=== PATIENT | male | born 1960 | race African-American/Black ===

== ENCOUNTER 2018-05-20 14:38 | Emergency (ER) | payer BC ==
[~2018-05-20] VITALS: Ht 177.8 cm; Wt 108.9 kg
--- OUTSIDE RECORDS SUMMARY | 2018-05-20 14:41 | XMS REPORT | Continuity of Care Document ---
Author Author [facility] Interface Address Unknown Phone Unavailable Problems Problem Status Onset Date Classification Date Reported Comments Source Obesity Active Problem 12/05/2017 [facility] TONYA on CPAP Resolved Problem 12/05/2017 [facility] Medications Medication Details Route Status Patient Instructions Ordering Provider Order Date Source Hydrochlorothiazide 25 MG / Losartan Potassium 100 MG Oral Tablet 1 tab, PO, Daily, # 90 tab, 1 Refill(s), Pharmacy: [id number] Active 08/28/2017 [facility] Allergies, Adverse Reactions, Alerts Substance Category Reaction Severity Reaction type Status Date Reported Comments Source Immunizations Immunization Date Given Site Status Last Updated Comments Source Results Order Name Results Value Reference Range Date Interpretation Comments Source Vital Signs Vital Sign Value Date Comments Source Height 177.8 cm 08/28/2017 [facility] BMI Calculated 35.25 08/28/2017 [facility] Weight 111.449 08/28/2017 [facility] Heart Rate 67 08/28/2017 [facility] Temperature Oral (F) 98.3 F 08/28/2017 [facility] Systolic (mm Hg) 174 08/28/2017 [facility] Diastolic (mm Hg) 99 08/28/2017 [facility] Encounters Location Location Details Encounter Type Encounter Number Reason For Visit Attending Provider ADM Date DC Date Status Source Outpatient [id number] TOBIAS LUIS 09/06/2015 Active [facility] Outpatient [id number] ANTONIO MARCELLA 09/20/2016 Active [facility] Outpatient [id number] ANTONIO MARCELLA 09/25/2016 Active [facility] Outpatient [id number] ANTONIO MARCELLA 11/06/2016 Active [facility] Outpatient [id number] NIA GERI- ROB 08/28/2017 Active [facility] Outpatient [id number] Nia Geri-Rob 08/28/2017 08/29/2017 [facility] Outpatient [id number] NIA GERI- ROB 01/15/2018 Active [facility] Outpatient [id number] NIA ROB 02/17/2018 Active [facility] Procedures Procedure Code Date Perfomer Comments Source
--- OUTSIDE RECORDS SUMMARY | 2018-05-20 14:41 | XMS REPORT | Summary of Care ---
Author Author [facility] Organization [facility] Address Unknown Phone Unavailable Encounter CHAVO Navarrete(SALINA) [id number] Date(s): 08/28/17 - 08/28/[address] [place] [address]- [phone] Discharge Disposition: Home or Self Care Attending Physician: Yue Wild MD Vital Signs Most recent to 1 oldest [Reference Range]: Height 177.8 cm (08/28/17 9:33 AM) Temperature Oral 98.3 DegF [96.4-99.1 DegF] (08/28/17 9:33 AM) Blood Pressure 174/99 mmHg [90-140/60-90 mmHg] *HI* (08/28/17 9:33 AM) Peripheral Pulse 67 bpm Rate [60-100 bpm] (08/28/17 9:33 AM) Weight 111.449 kg (08/28/17 9:33 AM) Body Mass Index 35.25 m2 (08/28/17 9:33 AM) Problem List Condition Effective Dates Status Health Status Informant Obesity(Confirmed) Active TONYA on Resolved CPAP(Confirmed) Allergies, Adverse Reactions, Alerts Substance Reaction Severity Status NKDA Active Medications hydrochlorothiazide-losartan 25 mg-100 mg oral tablet 1 tab, PO, Daily, # 90 tab, 1 Refill(s), Pharmacy: [facility] [id number] Start Date: 08/28/17 Status: Ordered Results No data available for this section Immunizations No data available for this section Procedures No data available for this section Social History Social History Type Response Substance Abuse Use: None. Alcohol Never Smoking Status Never smoker; Exposure to Tobacco Smoke None; Cigarette Smoking Last 365 Days No; Reg Smoking Cessation Counseling No entered on: 08/28/17 Assessment and Plan No data available for this section
--- NOTE | 2018-05-20 15:21 | Diagnostic Imaging Report ---
EXAMINATION: PA and lateral views of the chest. COMPARISON: None CLINICAL HISTORY: Cough and congestion DISCUSSION: Lungs are well-inflated. No focal airspace consolidation, pleural effusion, or pneumothorax area cardiomediastinal contour and pulmonary vasculature are within normal limits. No acute osseous abnormality. IMPRESSION: No acute cardiopulmonary abnormalities. Signed by: Dr. Pradeep Ray M.D. on 05/20/2018 3:17 PM
[2018-05-20 15:27] VITALS: BP 154/70
== END 2018-05-20 15:33 | disposition home or self-care (01) ==
LOC: FSED 14:38
DX: R06.00 Dyspnea, unspecified (principal); R05 Cough; J20.9 Acute bronchitis, unspecified; I10 Essential (primary) hypertension
CPT/HCPCS: 71046; 99283